=== PATIENT | female | born 1965 ===

== ENCOUNTER 2018-11-08 11:45 | Inpatient (IN) ==
[2018-11-08 14:44] LABS: Basophils # 0.1 10*3/uL (0.0-0.2); Basophils % 0.5 % (0.0-0.8); Eosinophils # 0.1 10*3/uL (0.0-0.87); Hematocrit 36.3 VOL% (35.7-47.0); Hemoglobin 12.1 GM/DL (12.0-16.0); Immature Granulocytes % 0.7 %; Immature Granulocytes Absolute 0.06 #; Lymphocytes # 2.9 10*3/uL (1.4-4.0); Mean Corpuscular HGB Conc 33.3 GM/DL (32-36); Mean Corpuscular Hemoglobin 30 PG (27-34); Mean Corpuscular Volume 89.4 FL (87-102); Mean Platelet Volume 11.4 FL (9.6-12.0); Monocytes # 0.7 10*3/uL (0.11-0.8); Monocytes % 7.1 % (1.7-12.7); Neutrophils # 5.4 10*3/uL (1.4-7.4); Neutrophils % 58.7 % (38.7-73.9); Platelet Count 199 T/CUMM (130-400); Red Blood Count 4.06 MC/CUMM (3.8-5.5); Red Cell Distribution Width 12.8 % (9.3-17.3); White Blood Count 9.1 T/CUMM (4-12)
[2018-11-08] MEDS ORDERED: GLUCAGON 1 MG VIAL IM PRN (15:03)
[2018-11-08] MEDS ORDERED: BISACODYL 5 MG TABLET PO PRN (15:03)
[2018-11-08] MEDS ORDERED: ACETAMINOPHEN 325 MG TABLET PO PRN (15:03)
[2018-11-08] MEDS ORDERED: ONDANSETRON 4 MG/2 ML VIAL IV PRN (15:03)
[2018-11-08] MEDS ORDERED: HYDROmorphone 2 MG/1 ML VIAL IV PRN (15:03)
[2018-11-08] MEDS ORDERED: DEXTROSE 50% 25 GM/50 ML VIAL IV PRN (15:03)
[2018-11-08 15:08] LABS: Alanine Aminotransferase 26 U/L (13-56); Albumin 3.3 G/DL (3.4-5.0); Alkaline Phosphatase 122 U/L (45-117); Aspartate Amino Transferase 15 U/L (0-37); Bilirubin,Total < 0.39 MG/DL (0.2-1.0); Blood Urea Nitrogen 22 MG/DL (7-18); Calcium 8.5 MG/DL (8.5-10.1); Glucose 322 MG/DL (74-106); Potassium 4.1 MMOL/L (3.5-5.1); Sodium 136 MMOL/L (136-145); Total Protein 7.4 G/DL (6.4-8.3)
[2018-11-08] MEDS ORDERED: SODIUM CHLORIDE 0.9% 1,000 ML IV STA (15:42)
[2018-11-08] MEDS: VANCOMYCIN INJ 1,000 MG in SODIUM CHLORIDE 0.9% 250 ML IV SCH (16:26)
[2018-11-08] MEDS: LACTATED RINGERS 1,000 ML IV SCH (16:27)
[2018-11-08] MEDS: PANTOPRAZOLE 40 MG TABLET PO SCH (16:28)
[2018-11-08] MEDS: INSULIN LISPRO 100 UNIT/ML SUBCUT SCH (16:49)
[2018-11-08] MEDS: LISINOPRIL 10 MG TABLET PO SCH (19:00)
[2018-11-08] MEDS: GABAPENTIN 300 MG CAPSULE PO SCH (20:19)
[2018-11-08] MEDS: AMITRIPTYLINE 25 MG TABLET PO SCH (20:19)
[2018-11-08] MEDS: CARVEDILOL 3.125 MG TABLET PO SCH (20:19)
[2018-11-09 05:31] LABS: Basophils # 0.1 10*3/uL (0.0-0.2); Basophils % 0.8 % (0.0-0.8); Eosinophils # 0.1 10*3/uL (0.0-0.87); Eosinophils % 1.6 % (0.00-10.9); Hematocrit 35.1 VOL% (35.7-47.0); Hemoglobin 11.1 GM/DL (12.0-16.0); Immature Granulocytes % 0.8 %; Immature Granulocytes Absolute 0.05 #; Lymphocytes # 3.6 10*3/uL (1.4-4.0); Lymphocytes % 55.8 % (21.3-54.2); Mean Corpuscular HGB Conc 31.6 GM/DL (32-36); Mean Corpuscular Hemoglobin 29 PG (27-34); Mean Corpuscular Volume 90.9 FL (87-102); Mean Platelet Volume 11.7 FL (9.6-12.0); Monocytes # 0.5 10*3/uL (0.11-0.8); Monocytes % 7.6 % (1.7-12.7); Neutrophils # 2.2 10*3/uL (1.4-7.4); Neutrophils % 33.4 % (38.7-73.9); Platelet Count 174 T/CUMM (130-400); Red Blood Count 3.86 MC/CUMM (3.8-5.5); White Blood Count 6.4 T/CUMM (4-12)
[2018-11-09 05:58] LABS: Calcium 8.6 MG/DL (8.5-10.1); Osmolality,Calculated 290.3 MOS/KG (273-304); Potassium 4.1 MMOL/L (3.5-5.1)
[2018-11-09] MEDS: VANCOMYCIN INJ 1,000 MG in SODIUM CHLORIDE 0.9% 250 ML IV SCH ×2 (06:03→17:13)
[2018-11-09 06:58] LABS: Hypochromasia 1+; Lymphocytes 57 % (20-55); Platelet Estimate Adequate; Segmented Neutrophils 36 % (50-85); Total Cells Counted 100
[2018-11-09] MEDS: LISINOPRIL 10 MG TABLET PO SCH ×2 (08:00→17:13)
[2018-11-09] MEDS: CARVEDILOL 3.125 MG TABLET PO SCH ×2 (08:00→21:35)
[2018-11-09] MEDS: INSULIN LISPRO 100 UNIT/ML SUBCUT SCH ×3 (08:00→17:13)
[2018-11-09] MEDS: FENOFIBRATE 145 MG TABLET PO SCH (09:53)
[2018-11-09] MEDS: PANTOPRAZOLE 40 MG TABLET PO SCH (09:53)
[2018-11-09] MEDS: GABAPENTIN 300 MG CAPSULE PO SCH ×2 (09:53→21:35)
[2018-11-09] MEDS: LACTATED RINGERS 1,000 ML IV SCH (17:13)
[2018-11-09] MEDS: AMITRIPTYLINE 25 MG TABLET PO SCH (21:36)
[2018-11-10] MEDS: VANCOMYCIN INJ 1,000 MG in SODIUM CHLORIDE 0.9% 250 ML IV SCH ×2 (06:24→18:33)
[2018-11-10] MEDS: INSULIN LISPRO 100 UNIT/ML SUBCUT SCH ×3 (07:56→16:24)
[2018-11-10] MEDS: PANTOPRAZOLE 40 MG TABLET PO SCH (09:16)
[2018-11-10] MEDS: CARVEDILOL 3.125 MG TABLET PO SCH ×2 (09:16→20:40)
[2018-11-10] MEDS: GABAPENTIN 300 MG CAPSULE PO SCH ×2 (09:16→20:40)
[2018-11-10] MEDS: LISINOPRIL 10 MG TABLET PO SCH ×2 (09:16→18:30)
[2018-11-10] MEDS: FENOFIBRATE 145 MG TABLET PO SCH (09:17)
[2018-11-10] MEDS ORDERED: BUPIVACAINE 0.5% 50 ML VIAL ONE (10:19)
[2018-11-10] MEDS ORDERED: LIDOCAINE 1% 20 ML VIAL ONE (10:19)
[2018-11-10] MEDS ORDERED: PROPOFOL 200 MG/20 ML VIAL IV ONE (11:37)
[2018-11-10] MEDS ORDERED: MIDAZOLAM 2 MG/2 ML VIAL ONE (11:38)
[2018-11-10] MEDS ORDERED: fentaNYL 100 MCG/2 ML VIAL ONE (11:38)
[2018-11-10] MEDS ORDERED: PHENYLEPHRINE 1 MG/10 ML SYRINGE IV ONE (11:38)
[2018-11-10] MEDS: AMITRIPTYLINE 25 MG TABLET PO SCH (20:40)
[2018-11-11] MEDS: LACTATED RINGERS 1,000 ML IV SCH ×3 (00:47→23:21)
[2018-11-11] MEDS: VANCOMYCIN INJ 1,000 MG in SODIUM CHLORIDE 0.9% 250 ML IV SCH ×2 (06:12→17:23)
[2018-11-11] MEDS: INSULIN LISPRO 100 UNIT/ML SUBCUT SCH ×3 (09:13→17:23)
[2018-11-11] MEDS: CARVEDILOL 3.125 MG TABLET PO SCH ×2 (09:16→21:44)
[2018-11-11] MEDS: LISINOPRIL 10 MG TABLET PO SCH ×2 (09:16→17:23)
[2018-11-11] MEDS: GABAPENTIN 300 MG CAPSULE PO SCH ×2 (09:16→21:44)
[2018-11-11] MEDS: FENOFIBRATE 145 MG TABLET PO SCH (09:16)
[2018-11-11] MEDS: PANTOPRAZOLE 40 MG TABLET PO SCH (09:16)
[2018-11-11] MEDS: AMITRIPTYLINE 25 MG TABLET PO SCH (21:44)
[2018-11-12] MEDS: VANCOMYCIN INJ 1,000 MG in SODIUM CHLORIDE 0.9% 250 ML IV SCH (05:36)
[2018-11-12 07:49] VITALS: BP 111/61
[2018-11-12] MEDS: INSULIN LISPRO 100 UNIT/ML SUBCUT SCH (09:00)
[2018-11-12] MEDS: CARVEDILOL 3.125 MG TABLET PO SCH (09:10)
[2018-11-12] MEDS: PANTOPRAZOLE 40 MG TABLET PO SCH (09:10)
[2018-11-12] MEDS: FENOFIBRATE 145 MG TABLET PO SCH (09:10)
[2018-11-12] MEDS: GABAPENTIN 300 MG CAPSULE PO SCH (09:10)
[2018-11-12] MEDS: LISINOPRIL 10 MG TABLET PO SCH (09:10)
== END 2018-11-12 11:29 | disposition home or self-care (01) | DRG 618 ==
LOC: N.ED 11:45 → N.EDINP 15:03 → N.3E 15:58
PROVIDERS: ADMIT Surgery; ATTEND Surgery